=== PATIENT | female | born 1960 | race Two or more races ===

== ENCOUNTER 2020-02-21 00:40 | Emergency (ER) | payer MEDICAID ==
[~2020-02-21] VITALS: Ht 167.6 cm; Wt 80.0 kg
[~2020-02-21 00:40] MED LIST: ASPI-728 PO; CARB200T6 PO; GLIP10 PO; LISI-662 PO; METF-960 PO; OMEP20 PO; SIMV-261 PO
[2020-02-21] MEDS ORDERED: ATOR40TA28 PO (01:00)
[2020-02-21 03:52] VITALS: BP 180/81
[2020-02-21] MEDS ORDERED: KETOROLAC TROMETHAMINE 60 MG/2 ML VIAL IM ONE (04:00)
[2020-02-21] MEDS ORDERED: CloNIDine HCL 0.2 MG TABLET PO ONE (04:00)
[2020-02-21] MEDS ORDERED: LORazepam 1 MG TABLET PO ONE (04:00)
== END 2020-02-21 05:37 | disposition home or self-care (01) ==
LOC: EMS 00:41
DX: I10 Essential (primary) hypertension (principal); F41.9 Anxiety disorder, unspecified; E11.9 Type 2 diabetes mellitus without complications; K21.9 Gastro-esophageal reflux disease without esophagitis; E78.00 Pure hypercholesterolemia, unspecified; Z79.899 Other long term (current) drug therapy; Z79.84 Long term (current) use of oral hypoglycemic drugs
CPT/HCPCS: 82962; 96372; 99283; J1885